=== PATIENT | female | born 1945 | race African-American/Black ===

== ENCOUNTER 2020-03-04 06:54 | Outpatient (NON) | payer MEDICARE, MEDICAID, SELFPAY ==
[2020-03-05 01:18] LABS: SARS-CoV-2 RNA PCR Negative
== END 2020-03-04 06:55 ==
PROVIDERS: PCP Internal Medicine; Visit Provider Internal Medicine
DX: Z20.828 Contact with and (suspected) exposure to other viral communicable diseases (principal)
CPT/HCPCS: 87635; C9803; U0003